=== PATIENT | female | born 1965 | race Caucasian/White ===

== ENCOUNTER 2020-05-13 09:26 | Outpatient (CLI) | payer MEDICARE, MEDICAID, SELFPAY ==
--- NOTE | 2020-05-13 09:44 | IR_ITS ---
WS: [id number] MYELOGRAM CERVICAL SPINE Fluoroscopic guided cervical myelogram CLINICAL INFORMATION: cervical pain COMPARISON: November 12, 2018 TECHNIQUE: The procedure, including risks, benefits, and complications, were discussed with the patie nt who agreed to proceed. A timeout was performed to confirm correct patient, procedure, and site. Using sterile technique, the patient was prepped and draped in the usual sterile fashion. After admin istration of local anesthesia using 1% preservative-free lidocaine and using fluoroscopic guidance, a 22-gauge spinal needle was advanced into the subarachnoid space at the L3-L4 level. Subsequently 13 cc of Omnipaque 300 was administered into the thecal sac. The needle was removed and hemostasis was a chieved. Subsequently the table was tilted down and contrast flowed freely into the cervical spine. S pot fluoroscopic images were obtained. FLUOROSCOPIC TIME: 2.[address] myelogram report for additional detail. IR/IR myelogram spine cervic/lumb IMPRESSION: 1. Uncomplicated cervical and lumbar myelogram. 2. See accompanying cervical and lumbar CT myelogram report for anatomic detai l
--- NOTE | 2020-05-13 09:45 | CT_ITS ---
WS: [id number] CT CERVICAL MYELOGRAM TECHNIQUE: CT of the cervical spine coronal and sagittal reformatted images post intrathecal administ ration of contrast. CLINICAL INFORMATION: cervical pain COMPARISON: November 12, 2018 DLP: 766.[address] scans at [facility] use at least one of these dose optimization techniques: automat ed exposure control; mA and/or kV adjustment per patient size (includes targeted exams where dose is matched to clinical indication); or iterative reconstruction. FINDINGS: Straightening of the normal cervical lordosis. Postoperative changes anterior cervical fusion C4-5 wi th interbody fusion graft. Evidence of bony bridging beyond the confines of the graft. Hardware appea rs in good position. No evidence of hardware loosening. C2-C3: No significant disc bulging. Spinal canal and foramen are patent. C3-C4: Mild disc bulging with slight effacement of ventral thecal sac. Small broad-based central disc protrusion with mild central canal stenosis. Slight contact cervical cord. Mild facet arthropathy. S armand canal and foramen are patent. C4-C5: Anterior and interbody cervical fusion. Spinal canal and foramen are patent. Mild facet arthro gaby. C5-C6: Anterior cervical fusion. Small central disc osteophyte protrusion slightly contacts the cervi juan j cord with mild central canal stenosis. Mild right and no significant left foraminal narrowing. Mi ld facet arthropathy. C6-C7: Tiny central disc osteophyte protrusion. Mild central canal stenosis. Moderate left and no sig nificant right foraminal narrowing. Mild facet arthropathy. C7-T1: No significant disc bulging. Spinal canal and foramen are patent. Visualized posterior fossa structures: Normal. CT/CT cervical spine w con [id number] IMPRESSION: 1. Straightening of the normal cervical lordosis. 2. Anterior interbody cervical fusion C4-C5. Hardware appears in good position . No evidence of loosening. Interbody fusion graft with evidence of bony bridgi ng beyond the confines of the graft. 3. Small broad-based central protrusion at C3-C4 with contact of the cervical cord and mild central canal stenosis. 4. Small central disc osteophyte protrusion C5-C6 with mild central canal sten osis and contact of the cervical cord. Mild right foraminal narrowing at this l evel. 5. Tiny central disc osteophyte protrusion C6-C7 with moderate left foraminal narrowing. Mild central canal stenosis. 6. Overall no significant changes since 2 .
--- NOTE | 2020-05-13 09:45 | CT_ITS ---
WS: [id number] CT LUMBAR SPINE TECHNIQUE: Contrast-enhanced CT of the lumbar spine with coronal and sagittal reformatted images. CLINICAL INFORMATION: lumbar pain COMPARISON: DLP: 2335.[address] scans at [facility] use at least one of these dose optimization techniques: automat ed exposure control; mA and/or kV adjustment per patient size (includes targeted exams where dose is matched to clinical indication); or iterative reconstruction. FINDINGS: Mild lumbar curve. No acute compression. No high-grade central canal stenosis. Extensive postoperativ e changes pedicle screw fixation L3-L5 with interbody fusion grafts L3-L4 and L4-L5. Evidence of bony bridging beyond the confines of the grafts. Hardware appears in good position. No evidence of hardwa re loosening. Laminectomy defects L3-L5. Partial fusion of the L5-S1 disc space. Dorsal bone graft ma terial. Dorsal fusion mass solid on the right at L3-L5. L1-L2: No significant disc bulging. Moderate facet arthropathy. Spinal canal and foramen are patent. L2-L3: No significant disc bulging. Spinal canal and foramen are patent. Advanced facet arthropathy. L3-L4: Postoperative changes pedicle screw fixation with anterior and posterior fusion. Spinal canal is patent. Foramen are patent. L4-L5: Postoperative changes anterior and posterior fusion. Interbody fusion. Spinal canal and forame n are patent. L5-S1: Partial interbody fusion. Mild right and no significant left foraminal narrowing. Osteophytic ridging with slight effacement of ventral thecal sac. Slight narrowing of subarticular recess. Modera te facet arthropathy. Visualized pelvic bony structures: Normal. Paravertebral soft tissues: Normal. CT/CT lumbar spine w con [id number] IMPRESSION: 1. No significant interval changes since . 2. Postoperative changes pedicle screw fixation L3-L5 with solid appearing int erbody fusion grafts L3-L4 and L4-L5. Evidence of bony bridging beyond the conf janes of the grafts. 3. Laminectomies L3-L5. 4. Mild right L5-S1 bony foraminal narrowing with slight encroachment on the e xiting right L5 nerve root. Osteophytic ridging at this level results in narrow ing of the left greater than right subarticular recess. 5. Mild central canal stenosis L2-3 due to minimal disc bulging with osteophyt ic ridging and advanced facet arthropathy ligament flavum hypertrophy.
== END 2020-05-13 09:27 | disposition home or self-care (01) ==
LOC: RAD 09:34
PROVIDERS: PCP Family Medicine; Visit Provider Specialist
DX: M54.5 Low back pain (principal); M96.1 Postlaminectomy syndrome, not elsewhere classified; M48.061 Spinal stenosis, lumbar region without neurogenic claudication; M25.78 Osteophyte, vertebrae; M43.22 Fusion of spine, cervical region; M50.21 Other cervical disc displacement, high cervical region
CPT/HCPCS: 62305; 72040; 72120; 72126; 72132; Q9967